=== PATIENT | male | born 1955 | race Caucasian/White ===

== ENCOUNTER 2018-02-03 11:58 | Emergency (ER) | payer OTHER ==
[~2018-02-03] VITALS: Ht 177.8 cm; Wt 127.0 kg
[~2018-02-03 11:58] MED LIST: AMARYL4 MG PO; ANALGESIC BA28.35 GM; ANALGESIC325 MG PO; ASPIRIN325 PO; ATENOLOL 25 MG25 M1 PO; ATENOLOL 25MG T25 MG PG; ATENOLOL 50MG T50 M1 PO; BACTRIM DS TAB1 EACH PO; BENAZEPRIL HCL20 MG PO; BLOOD SUGAR MED; BRAIN MIGHT-DH1 EACH PO; CIPRO500 MG PO; CIPROFLOXACIN500 M1 PO; CLEOCIN HCL300 MG PO; COLACE100 MG PO; DOXYCYCLINE 10100 MG PO; FISH OIL 1,0001 EAC8 PO; FISHOIL; FLAGYL500 MG PO; FLEXERIL PO; FLUOXETINE HCL40 MG PO; FLUOXETINE PO; GLIPIZIDE 10 MG10 MG PO; GLUCOPHAGE1000 MG PO; GLYBURIDE 3 MG M3 M1 PO; HYDROCODON-ACE1 EAC7 PO; IBUPROFEN 800800 M1 PO; JANUMET 50-1,01 EACH PO; JANUVIA100 MG PO; KEFLEX500 MG PO; LANTUS SC; LANTUS SUBQ; LISINOPRIL; LISINOPRIL20 MG PO; LISINOPRIL40 MG PO; LOTREL 2.5-101 EACH PO; MEDROLDOSEPACK PO; METAMUCIL PAC1 UDPKT PO; MILK OF MA2400 MG/10 PO; MIRALAX17 G1 PO; NIASPAN 500 MG500 M1 PO; NITROSTAT0.4 MG SL; NORCO 5-325 TA1 EACH PO; NORVASC5 MG PO; OXYCODONE HCL 55 MG PO; PIOGLITAZONE15 MG PO; PLAVIX 75 MG TA75 MG PO; PROZAC20 MG PO; ROXICODONE5 MG PO; SIMVASTATIN PO; ULTRA-LIGHT RO1 EACH MC; VITAMIN B122500 MCG PO; VITAMINC500 PO; XARELTO10 MG PO; ZOCOR 10 MG TAB10 MG PO
[2018-02-03] MEDS ORDERED: IBUPROFEN 800800 M1 PO (12:56)
[2018-02-03 13:11] VITALS: BP 139/65
== END 2018-02-03 13:11 | disposition home or self-care (01) ==
LOC: M.ERS 11:58
DX: S60.221A Contusion of right hand, initial encounter (principal); W51.XXXA Accidental striking against or bumped into by another person, initial encounter; Y93.89 Activity, other specified; Y92.89 Other specified places as the place of occurrence of the external cause; Y99.8 Other external cause status; I10 Essential (primary) hypertension; E78.5 Hyperlipidemia, unspecified; E11.9 Type 2 diabetes mellitus without complications; I25.2 Old myocardial infarction; Z96.653 Presence of artificial knee joint, bilateral; Z88.1 Allergy status to other antibiotic agents; Z91.041 Radiographic dye allergy status

== ENCOUNTER 2018-07-08 12:48 | Emergency (ER) | payer OTHER ==
[~2018-07-08] VITALS: Ht 177.8 cm; Wt 133.8 kg
[2018-07-08] MEDS ORDERED: IBUPROFEN 800800 MG PO (13:17)
[2018-07-08] MEDS ORDERED: HYDROCODON-ACE1 EAC8 PO (13:17)
[2018-07-08 13:30] VITALS: BP 136/81
== END 2018-07-08 13:30 | disposition home or self-care (01) ==
LOC: M.ERS 12:48
DX: S46.812A Strain of other muscles, fascia and tendons at shoulder and upper arm level, left arm, initial encounter (principal); I10 Essential (primary) hypertension; E78.5 Hyperlipidemia, unspecified; E11.9 Type 2 diabetes mellitus without complications; Z96.653 Presence of artificial knee joint, bilateral; Z91.041 Radiographic dye allergy status; Z88.8 Allergy status to other drugs, medicaments and biological substances; X58.XXXA Exposure to other specified factors, initial encounter; Y93.89 Activity, other specified; Y92.89 Other specified places as the place of occurrence of the external cause; Y99.8 Other external cause status

== ENCOUNTER 2018-09-30 17:19 | Emergency (ER) | payer OTHER ==
[~2018-09-30] VITALS: Ht 180.3 cm; Wt 124.7 kg
[~2018-09-30 17:19] MED LIST changes: +HYDROCODON-ACE1 EAC8 PO; +IBUPROFEN 800800 MG PO
[2018-09-30] MEDS ORDERED: GLUCOPHAGE1000 MG PO (17:28)
[2018-09-30] MEDS ORDERED: OZEMPIC0.25 MG/0. SUBQ (17:29)
[2018-09-30 17:47] LABS: ABSOLUTE BASOPHILS 0.1 thou/uL (0.0-0.2); ABSOLUTE EOSINOPHILS 0.1 thou/uL (0.0-0.7); ABSOLUTE LYMPHOCYTES 1.8 thou/uL (0.8-5.3); ABSOLUTE MONOCYTES 0.7 thou/uL (0.0-1.2); ABSOLUTE NEUTROPHILS 6.5 thou/uL (1.6-8.1); BASOPHILS 0.7 %; EOSINOPHILS 0.8 %; HEMATOCRIT 44.1 % (42.0-52.0); HEMOGLOBIN 15.2 gm/dL (14.0-18.0); LYMPHOCYTES 19.8 %; MCH 28.6 pg (26.0-34.0); MCHC 34.5 g/dL (28.0-37.0); MONOCYTES 7.6 %; MPV 8.7 fl. (7.2-11.1); NUCLEATED RBCS 0 /100WBC; PLATELET COUNT* 294 thou/uL (150-400); POLYS 71.1 %; RBC 5.32 mil/uL (4.50-6.00); RDW-CV 12.6 % (10.5-14.5); WBC 9.2 thou/uL (4.0-11.0)
[2018-09-30 17:53] LABS: CALCIUM 9.2 mg/dL (8.5-10.1); CREATININE 0.8 mg/dL (0.6-1.3); POTASSIUM 4.2 mmol/L (3.5-5.1)
[2018-09-30 17:58] LABS: ALBUMIN 3.9 g/dL (3.4-5.0); TOTAL BILIRUBIN 0.6 mg/dL (<0.1-1.0); TOTAL PROTEIN 6.9 g/dL (6.4-8.2)
[2018-09-30] MEDS ORDERED: NORCO 7.5-3251 EACH PO (20:22)
[2018-09-30 20:38] VITALS: BP 126/87
== END 2018-09-30 20:39 | disposition home or self-care (01) ==
LOC: M.ERS 17:19
PROVIDERS: Nurse Practitioner Psychiatric/Mental Health
DX: M48.061 Spinal stenosis, lumbar region without neurogenic claudication (principal); I10 Essential (primary) hypertension; E78.5 Hyperlipidemia, unspecified; E11.9 Type 2 diabetes mellitus without complications; Z88.8 Allergy status to other drugs, medicaments and biological substances; Z96.653 Presence of artificial knee joint, bilateral; Z91.041 Radiographic dye allergy status

== ENCOUNTER → 2018-10-14 | Outpatient (CLI) | payer OTHER ==
[~2018-10-14] MED LIST changes: +NORCO 7.5-3251 EACH PO; +OZEMPIC0.25 MG/0. SUBQ
== END ==
LOC: M.MRI 08:04
DX: M48.061 Spinal stenosis, lumbar region without neurogenic claudication (principal); M51.37 Other intervertebral disc degeneration, lumbosacral region; M47.817 Spondylosis without myelopathy or radiculopathy, lumbosacral region; M12.88 Other specific arthropathies, not elsewhere classified, other specified site

== ENCOUNTER → 2018-10-29 | Outpatient (CLI) | payer OTHER | END | disposition home or self-care (01) | LOC: M.PC 08:02 | DX: M51.16 Intervertebral disc disorders with radiculopathy, lumbar region (principal); M47.26 Other spondylosis with radiculopathy, lumbar region; M48.061 Spinal stenosis, lumbar region without neurogenic claudication; M43.16 Spondylolisthesis, lumbar region; I10 Essential (primary) hypertension; E78.5 Hyperlipidemia, unspecified; E11.9 Type 2 diabetes mellitus without complications; Z96.653 Presence of artificial knee joint, bilateral; Z79.899 Other long term (current) drug therapy; Z91.041 Radiographic dye allergy status; Z88.8 Allergy status to other drugs, medicaments and biological substances ==

== ENCOUNTER → 2018-11-12 | Outpatient (CLI) | payer OTHER | LOC: M.PC 05:15 | DX: M47.26 Other spondylosis with radiculopathy, lumbar region (principal); M51.16 Intervertebral disc disorders with radiculopathy, lumbar region; M48.061 Spinal stenosis, lumbar region without neurogenic claudication; M43.16 Spondylolisthesis, lumbar region; M25.752 Osteophyte, left hip; I10 Essential (primary) hypertension; E78.5 Hyperlipidemia, unspecified; E11.9 Type 2 diabetes mellitus without complications; Z96.653 Presence of artificial knee joint, bilateral ==

== ENCOUNTER → 2018-11-19 | Outpatient (CLI) | payer OTHER ==
[~2018-11-19] MED LIST changes: +MOBIC15 MG PO
== END | disposition home or self-care (01) ==
LOC: M.PC 05:14
DX: M16.11 Unilateral primary osteoarthritis, right hip (principal); Z88.8 Allergy status to other drugs, medicaments and biological substances; Z91.041 Radiographic dye allergy status; Z79.899 Other long term (current) drug therapy; Z79.82 Long term (current) use of aspirin; Z79.84 Long term (current) use of oral hypoglycemic drugs

== ENCOUNTER → 2018-12-03 | Outpatient (CLI) | payer OTHER | LOC: M.PC 04:49 | DX: M47.26 Other spondylosis with radiculopathy, lumbar region (principal); M51.16 Intervertebral disc disorders with radiculopathy, lumbar region; I10 Essential (primary) hypertension; E78.5 Hyperlipidemia, unspecified; M48.062 Spinal stenosis, lumbar region with neurogenic claudication; M43.16 Spondylolisthesis, lumbar region; Z96.653 Presence of artificial knee joint, bilateral; Z88.8 Allergy status to other drugs, medicaments and biological substances ==

== ENCOUNTER → 2018-12-17 | Outpatient (CLI) | payer OTHER | LOC: M.PC 05:04 | DX: M47.26 Other spondylosis with radiculopathy, lumbar region (principal); M51.16 Intervertebral disc disorders with radiculopathy, lumbar region; M48.061 Spinal stenosis, lumbar region without neurogenic claudication; M79.605 Pain in left leg; M25.551 Pain in right hip; I10 Essential (primary) hypertension; E11.9 Type 2 diabetes mellitus without complications; E78.5 Hyperlipidemia, unspecified; Z96.653 Presence of artificial knee joint, bilateral; Z87.891 Personal history of nicotine dependence; Z91.041 Radiographic dye allergy status; Z88.1 Allergy status to other antibiotic agents ==

== ENCOUNTER → 2019-01-14 | Outpatient (CLI) | payer OTHER ==
[~2019-01-14] MED LIST changes: +LORCET PLUS 7.1 EACH PO
== END ==
LOC: M.PC 04:51
DX: M51.16 Intervertebral disc disorders with radiculopathy, lumbar region (principal); M47.26 Other spondylosis with radiculopathy, lumbar region; M48.062 Spinal stenosis, lumbar region with neurogenic claudication; M43.16 Spondylolisthesis, lumbar region; I10 Essential (primary) hypertension; E11.9 Type 2 diabetes mellitus without complications; E78.5 Hyperlipidemia, unspecified

== ENCOUNTER → 2019-02-11 | Outpatient (CLI) | payer OTHER ==
[~2019-02-11] MED LIST changes: -LORCET PLUS 7.1 EACH PO
== END ==
LOC: M.PC 05:27
DX: M51.17 Intervertebral disc disorders with radiculopathy, lumbosacral region (principal); M48.07 Spinal stenosis, lumbosacral region; M47.26 Other spondylosis with radiculopathy, lumbar region; I10 Essential (primary) hypertension; E78.5 Hyperlipidemia, unspecified; E11.9 Type 2 diabetes mellitus without complications; Z96.653 Presence of artificial knee joint, bilateral; Z87.891 Personal history of nicotine dependence

== ENCOUNTER → 2019-03-11 | Outpatient (CLI) | payer OTHER ==
[~2019-03-11] MED LIST changes: +LORCET PLUS 7.1 EACH PO
== END ==
LOC: M.PC 05:47
DX: M48.061 Spinal stenosis, lumbar region without neurogenic claudication (principal); M51.16 Intervertebral disc disorders with radiculopathy, lumbar region; M47.26 Other spondylosis with radiculopathy, lumbar region; M43.16 Spondylolisthesis, lumbar region; M25.559 Pain in unspecified hip

== ENCOUNTER → 2019-04-06 | Outpatient (CLI) | payer OTHER | LOC: M.PC 03:01 | DX: M51.16 Intervertebral disc disorders with radiculopathy, lumbar region (principal); M47.26 Other spondylosis with radiculopathy, lumbar region; M48.061 Spinal stenosis, lumbar region without neurogenic claudication; M43.16 Spondylolisthesis, lumbar region ==

== ENCOUNTER 2019-04-10 12:22 | Emergency (ER) | payer OTHER ==
[~2019-04-10] VITALS: Ht 177.8 cm; Wt 132.4 kg
[2019-04-10 12:43] LABS: ABSOLUTE BASOPHILS 0.1 thou/uL (0.0-0.2); ABSOLUTE EOSINOPHILS 0.1 thou/uL (0.0-0.7); ABSOLUTE LYMPHOCYTES 1.2 thou/uL (0.8-5.3); ABSOLUTE MONOCYTES 0.5 thou/uL (0.0-1.2); ABSOLUTE NEUTROPHILS 4.8 thou/uL (1.6-8.1); BASOPHILS 1.1 %; EOSINOPHILS 1.1 %; HEMOGLOBIN 14.7 gm/dL (14.0-18.0); MCH 29.1 pg (26.0-34.0); MCV 83.3 fL (80.0-100.0); MONOCYTES 7.8 %; MPV 8.2 fl. (7.2-11.1); NUCLEATED RBCS 0 /100WBC; PLATELET COUNT* 309 thou/uL (150-400); RBC 5.05 mil/uL (4.50-6.00); RDW-CV 12.9 % (10.5-14.5); WBC 6.7 thou/uL (4.0-11.0)
[2019-04-10 12:53] LABS: CALCIUM 9.1 mg/dL (8.5-10.1); CREATININE 0.8 mg/dL (0.6-1.3); POTASSIUM 3.9 mmol/L (3.5-5.1)
[2019-04-10 12:56] LABS: APTT 26.8 Seconds (25.0-31.3); INR 1.1; PROTIME 10.9 Seconds (9.20-11.50)
[2019-04-10 13:06] LABS: ALBUMIN 3.9 g/dL (3.4-5.0); CK-MB MASS 1.5 ng/mL (<0.5-3.6); MAGNESIUM 1.8 mg/dL (1.8-2.4); TOTAL BILIRUBIN 0.6 mg/dL (<0.1-1.0); TOTAL PROTEIN 7.1 g/dL (6.4-8.2)
--- NOTE | 2019-04-10 15:18 | EKG ---
[place] [address] ELECTROCARDIOGRAM REPORT Name: PALFE Room: [facility]#: [id number] Admission: 04/10/19 Attend Phys: Discharge: Date of : 53 Report #: [id number] THIS REPORT FOR: //name// [facility] ED Test Date: 2019-04-10 Test Time: 12:30:39 Pat Name: FE AGUILLON Department: Room: Gender: Camp Director: : 1955 Requested By: Krishan Snider Order Number: [id number] MD: Les Rodriguez Measurements Intervals [place] Rate: 79 P: 22 MT: 223 QRS: 27 QRSD: 100 T: 32 QT: 341 QTc: 391 Interpretive Statements Sinus rhythm Prolonged MT interval Baseline wander in lead(s) II,III,aVF Compared to ECG 02/15/2016 00:32:57 No significant changes Electronically Signed On 04-10-2019 15:18:15 [employer] by Les Rodriguez [email or web address] <ELECTRONICALLY SIGNED> By: Les Rodriguez MD, [facility] 04/10/19 1518 1230 1230 Les Rodriguez MD, FACC /EPI
[2019-04-10 15:45] VITALS: BP 158/93
== END 2019-04-10 15:46 | disposition home or self-care (01) ==
LOC: M.ERS 12:22
PROVIDERS: Family Medicine
DX: R07.89 Other chest pain (principal); E11.9 Type 2 diabetes mellitus without complications; I10 Essential (primary) hypertension; E78.5 Hyperlipidemia, unspecified; I25.2 Old myocardial infarction; Z96.652 Presence of left artificial knee joint; Z91.041 Radiographic dye allergy status; Z88.8 Allergy status to other drugs, medicaments and biological substances

== ENCOUNTER → 2019-05-04 | Outpatient (CLI) | payer MEDICARE | LOC: M.PC 10:35 | DX: M47.26 Other spondylosis with radiculopathy, lumbar region (principal); M51.16 Intervertebral disc disorders with radiculopathy, lumbar region; M48.061 Spinal stenosis, lumbar region without neurogenic claudication ==

== ENCOUNTER → 2019-06-01 | Outpatient (CLI) | payer MEDICARE | LOC: M.PC 01:31 | PROVIDERS: Physical Medicine & Rehabilitation | DX: M54.5 Low back pain (principal); I10 Essential (primary) hypertension; E78.5 Hyperlipidemia, unspecified; E11.9 Type 2 diabetes mellitus without complications; M48.061 Spinal stenosis, lumbar region without neurogenic claudication; M51.16 Intervertebral disc disorders with radiculopathy, lumbar region; Z96.653 Presence of artificial knee joint, bilateral; Z79.899 Other long term (current) drug therapy ==

== ENCOUNTER → 2019-06-29 | Outpatient (CLI) | payer MEDICARE | LOC: M.PC 02:04 | DX: M51.17 Intervertebral disc disorders with radiculopathy, lumbosacral region (principal); M48.07 Spinal stenosis, lumbosacral region; M43.16 Spondylolisthesis, lumbar region; I10 Essential (primary) hypertension; E78.5 Hyperlipidemia, unspecified; E11.9 Type 2 diabetes mellitus without complications; Z96.653 Presence of artificial knee joint, bilateral; Z87.891 Personal history of nicotine dependence ==

== ENCOUNTER → 2019-09-02 | Outpatient (CLI) | payer MEDICARE ==
[~2019-09-02] MED LIST changes: +NORCO 5-325 TA1 EAC1 PO
== END ==
LOC: M.RAD 08:00
DX: M19.011 Primary osteoarthritis, right shoulder (principal); M25.711 Osteophyte, right shoulder

== ENCOUNTER → 2019-09-09 | Outpatient (CLI) | payer MEDICARE | LOC: M.PC 04:12 | DX: M47.26 Other spondylosis with radiculopathy, lumbar region (principal); M25.559 Pain in unspecified hip; M25.519 Pain in unspecified shoulder; M48.061 Spinal stenosis, lumbar region without neurogenic claudication; M25.562 Pain in left knee; M19.019 Primary osteoarthritis, unspecified shoulder; M79.604 Pain in right leg; M43.16 Spondylolisthesis, lumbar region; I10 Essential (primary) hypertension; E78.5 Hyperlipidemia, unspecified; E11.9 Type 2 diabetes mellitus without complications; Z98.1 Arthrodesis status; Z79.899 Other long term (current) drug therapy ==

== ENCOUNTER → 2019-10-07 | Outpatient (CLI) | payer MEDICARE | END | disposition home or self-care (01) | LOC: M.PC 03:28 | PROVIDERS: ATTEND Physical Medicine & Rehabilitation | DX: M25.511 Pain in right shoulder (principal); M54.5 Low back pain; Z79.899 Other long term (current) drug therapy; Z91.041 Radiographic dye allergy status; Z88.8 Allergy status to other drugs, medicaments and biological substances ==

== ENCOUNTER → 2019-11-04 | Outpatient (CLI) | payer MEDICARE ==
[~2019-11-04] MED LIST changes: +NORCO 5-325 TA1 EAC2 PO
== END ==
LOC: M.PC 05:24
PROVIDERS: ATTEND Physical Medicine & Rehabilitation
DX: M47.26 Other spondylosis with radiculopathy, lumbar region (principal); M48.061 Spinal stenosis, lumbar region without neurogenic claudication; M51.36 Other intervertebral disc degeneration, lumbar region; M25.551 Pain in right hip; M19.011 Primary osteoarthritis, right shoulder; M19.012 Primary osteoarthritis, left shoulder; M75.41 Impingement syndrome of right shoulder; I10 Essential (primary) hypertension; E78.5 Hyperlipidemia, unspecified; E11.9 Type 2 diabetes mellitus without complications; Z96.653 Presence of artificial knee joint, bilateral; Z92.241 Personal history of systemic steroid therapy

== ENCOUNTER → 2019-12-02 | Outpatient (CLI) | payer OTHER | LOC: M.PC 08:37 | PROVIDERS: ATTEND Physical Medicine & Rehabilitation | DX: M51.16 Intervertebral disc disorders with radiculopathy, lumbar region (principal); M47.26 Other spondylosis with radiculopathy, lumbar region; M48.061 Spinal stenosis, lumbar region without neurogenic claudication; M19.011 Primary osteoarthritis, right shoulder; M75.41 Impingement syndrome of right shoulder ==

== ENCOUNTER → 2019-12-30 | Outpatient (CLI) | payer OTHER | END | disposition home or self-care (01) | LOC: M.PC 08:34 | PROVIDERS: ATTEND Physical Medicine & Rehabilitation | DX: M19.011 Primary osteoarthritis, right shoulder (principal); E11.9 Type 2 diabetes mellitus without complications; E78.5 Hyperlipidemia, unspecified; I10 Essential (primary) hypertension; M75.41 Impingement syndrome of right shoulder; Z79.84 Long term (current) use of oral hypoglycemic drugs; Z79.899 Other long term (current) drug therapy; Z98.890 Other specified postprocedural states ==

== ENCOUNTER → 2020-01-27 | Outpatient (CLI) | payer OTHER ==
[~2020-01-27] MED LIST changes: +CYMBALTA60 MG PO; +EFFEXOR XR150 MG PO; +TRULICITY1.5 MG/0.5 SUBQ; +ZPAK PO
== END ==
LOC: M.PC 08:03
PROVIDERS: ATTEND Physical Medicine & Rehabilitation
DX: M47.26 Other spondylosis with radiculopathy, lumbar region (principal); M48.061 Spinal stenosis, lumbar region without neurogenic claudication; M43.16 Spondylolisthesis, lumbar region; M51.17 Intervertebral disc disorders with radiculopathy, lumbosacral region; M75.41 Impingement syndrome of right shoulder; M19.011 Primary osteoarthritis, right shoulder; I10 Essential (primary) hypertension; E78.5 Hyperlipidemia, unspecified; E11.9 Type 2 diabetes mellitus without complications; M79.18 Myalgia, other site; Z88.8 Allergy status to other drugs, medicaments and biological substances; Z96.653 Presence of artificial knee joint, bilateral; Z98.890 Other specified postprocedural states

== ENCOUNTER → 2020-01-29 | Outpatient (CLI) | payer OTHER ==
[~2020-01-29] MED LIST changes: -CYMBALTA60 MG PO; -ZPAK PO
== END ==
LOC: M.MRI 07:10
PROVIDERS: ATTEND Physical Medicine & Rehabilitation
DX: M65.811 Other synovitis and tenosynovitis, right shoulder (principal); M25.411 Effusion, right shoulder; M25.511 Pain in right shoulder

== ENCOUNTER 2020-02-09 09:42 | Emergency (ER) | payer OTHER ==
[~2020-02-09] VITALS: Ht 177.8 cm; Wt 124.3 kg
[2020-02-09] MEDS ORDERED: CYMBALTA60 MG PO (10:10)
[2020-02-09 11:00] LABS: INFLUENZA A ANTIGEN Negative (Negative); INFLUENZA B ANTIGEN Negative (Negative)
[2020-02-09] MEDS ORDERED: ZPAK PO ×2 (12:10→12:12)
[2020-02-09 12:21] VITALS: BP 169/87
== END 2020-02-09 12:21 | disposition home or self-care (01) ==
LOC: M.ERS 09:42
PROVIDERS: Emergency Medicine
DX: U07.1 COVID-19 (principal); I10 Essential (primary) hypertension; E78.5 Hyperlipidemia, unspecified; E11.9 Type 2 diabetes mellitus without complications; Z96.652 Presence of left artificial knee joint; Z95.5 Presence of coronary angioplasty implant and graft; Z88.8 Allergy status to other drugs, medicaments and biological substances; Z91.041 Radiographic dye allergy status

== ENCOUNTER → 2020-08-08 | Outpatient (CLI) | payer OTHER ==
[~2020-08-08] MED LIST changes: +APAP W/CODEINE1 TA2 PO; +CYMBALTA60 MG PO; +VENLAFAXINE HC225 MG PO; +VITAMIN D3250 MC2 PO; +ZPAK PO
== END ==
LOC: M.PC 10:15
PROVIDERS: ATTEND Physical Medicine & Rehabilitation
DX: M51.17 Intervertebral disc disorders with radiculopathy, lumbosacral region (principal); M48.061 Spinal stenosis, lumbar region without neurogenic claudication

== ENCOUNTER 2020-12-09 19:39 | Emergency (ER) | payer OTHER ==
[~2020-12-09] VITALS: Ht 177.8 cm; Wt 119.8 kg
[2020-12-09] MEDS ORDERED: ? ANTIBIOTIC (19:57)
[2020-12-09] MEDS ORDERED: CIPRO (19:57)
[2020-12-09] MEDS ORDERED: HYDROCODON-ACE1 EAC8 PO (22:14)
[2020-12-09 22:29] VITALS: BP 131/70
== END 2020-12-09 22:30 | disposition home or self-care (01) ==
LOC: M.ERS 19:39
DX: M25.521 Pain in right elbow (principal); M79.601 Pain in right arm; I25.2 Old myocardial infarction; I10 Essential (primary) hypertension; E78.5 Hyperlipidemia, unspecified; E11.9 Type 2 diabetes mellitus without complications; Z79.82 Long term (current) use of aspirin; Z79.84 Long term (current) use of oral hypoglycemic drugs; Z79.899 Other long term (current) drug therapy; Z88.8 Allergy status to other drugs, medicaments and biological substances; Z91.041 Radiographic dye allergy status